=== PATIENT | female | born 1975 | race Caucasian/White ===

== ENCOUNTER → 2017-06-26 15:28 | Outpatient (CLI) | payer OTHER, SELFPAY ==
[2017-06-26 15:42] LABS: International Normalized Ratio 3.2; Prothrombin Time (Protime)PT. 32.9 SECONDS (11.7-14.9)
== END ==
PROVIDERS: Family Provider Family Medicine; PCP Family Medicine; Visit Provider Family Medicine
DX: D68.9 Coagulation defect, unspecified (principal)
CPT/HCPCS: 85610

== ENCOUNTER → 2018-10-27 | Outpatient (CLI) | payer BC, SELFPAY ==
[2018-10-27 12:31] LABS: International Normalized Ratio 1.2; Prothrombin Time (Protime)PT. 15.2 SECONDS (11.7-14.9)
== END | disposition home or self-care (01) ==
LOC: LABSPEC 12:14
PROVIDERS: Family Provider Family Medicine; PCP Family Medicine; Referring Provider Family Medicine; Visit Provider Family Medicine
DX: Z86.711 Personal history of pulmonary embolism (principal); Z51.81 Encounter for therapeutic drug level monitoring
CPT/HCPCS: 85610

== ENCOUNTER → 2019-05-04 10:18 | Outpatient (CLI) | payer BC, SELFPAY ==
[2014-07-21 08:56] VITALS: BMI 43.0
[2019-05-04 10:46] LABS: International Normalized Ratio 2.4; Prothrombin Time (Protime)PT. 25.8 SECONDS (11.7-14.9)
== END ==
LOC: LABSPEC 10:21
PROVIDERS: PCP Family Medicine
DX: Z86.711 Personal history of pulmonary embolism (principal)
CPT/HCPCS: 85610